=== PATIENT | female | born 1990 | race American Indian/Alaskan Native ===

== ENCOUNTER 2016-10-28 18:48 | Emergency (ER) | payer MEDICAID ==
--- NOTE | 2016-10-28 19:21 | Emergency Department Report ---
Chief Complaint: Urogenital-Female Stated Complaint: PREG/STOMACH PAIN/CRAMPING/VAG DISCH Time Seen by Provider: 10/28/16 19:21 - HPI History of Present Illness: . SHe reports that she is estimated at 7 weeks confirmed by home tests. She is complaining of lower abdominal cramping and vaginal discharge that as ordered times one week. She reports urinary frequency and some burning. Denies any fever or chills.She also said that she had minimal vaginal spotting today. She is no longer having any spotting. She reports that her pain is crampy in its 9 out of 10. Last menstrual period was 2015. - ROS Review of Systems: All systems are negative unless stated in HPI above. - Exam Vital Signs: Vital Signs 10/28/16 18:53 Temperature 98.4 F Pulse Rate 98 H Respiratory 18 Rate Blood Pressure 144/83 O2 Sat by Pulse 99 Oximetry Physical Exam: General:26-year-old female well-nourished well-developed in no acute distress. CV: S1, S2. Regular rate and rhythm. Abdomen: Tender to palpate in mid pelvic area. Normal bowel sounds in all quadrants. No CVA tenderness bilaterally. MSE screening note: Focused history and physical exam performed. Due to findings the following was ordered:see mdm ED Medical Decision Making - Medical Decision Making Medical decision making: Patient seen by provider in triage area. Appropriate protocol activated and patient to main ED to be seen by physician. ED Disposition for MSE Condition: Stable
[2016-10-28 19:57] LABS: Basophils % (Auto) 0.5 % (0.0-1.8); Hematocrit 37.2 % (30.3-42.9); Hemoglobin 12.3 gm/dl (10.1-14.3); Mean Corpuscular HGB Conc 33 % (30-34); Mean Corpuscular Volume 76 fl (79-97); Platelet Count 327 K/mm3 (140-440); Red Cell Distribution Width 13.3 % (13.2-15.2)
[2016-10-28 19:58] LABS: Mean Corpuscular Hemoglobin 25 pg (28-32)
[2016-10-28 20:10] LABS: Bilirubin,Urine NEG (Negative); Blood,Urine SM (Negative); Ketones,Urine NEG (Negative); Leukocyte Esterase,Urine MOD (Negative); Mucus,Urine FEW /HPF; Nitrite,Urine NEG (Negative); Protein,Urine <15 mg/dL mg/dL (Negative)
[2016-10-28 20:20] LABS: Alanine Aminotransferase 18 units/L (7-56); Albumin 4.2 g/dL (3.9-5); Albumin/Globulin Ratio 1.2 %; Alkaline Phosphatase 42 units/L (35-129); Amylase 61 units/L (27-131); Anion Gap 18 mmol/L; BUN/Creatinine Ratio 16.66; Bilirubin,Total 0.3 mg/dL (0.1-1.2); Blood Urea Nitrogen 10 mg/dL (7-17); Calcium 9.2 mg/dL (8.4-10.2); Carbon Dioxide 24 mmol/L (22-30); Chloride 100.3 mmol/L (98-107); Glucose 101 mg/dL (65-100); Lipase 42 units/L (13-60); Potassium 3.6 mmol/L (3.6-5.0); Sodium 139 mmol/L (137-145); Total Protein 7.7 g/dL (6.3-8.2)
--- NOTE | 2016-10-28 22:47 | Ultrasound Report ---
FINAL REPORT PROCEDURE: US OB TRANSVAGINAL TECHNIQUE: Real-time transabdominal and transvaginal sonography of the uterus, placenta, amniotic fluid, adnexa, and fetus was performed with image documentation. Measurements were obtained to determine age/size. M-mode Doppler was used to document heartbeat. CPT 96742 and 01877 HISTORY: abdominal pain and COMPARISON: No prior studies are available for comparison. FINDINGS: ADDITIONAL GESTATION: None. Single live intrauterine is seen with crown-rump length of 3.2 cm corresponding to 6 weeks 0 days gestational age. Mean sac diameter corresponds to estimated gestational age is 6 weeks 2 days gestational age. Estimated date of delivery based on these measurements is June 22, 2017. heart rate is 116 beats per minute. Tiny subchorionic hemorrhage is seen measuring 8 millimeters in greatest dimension. Right ovary measures 2.4 x 1.7 x 1.3 cm. Left ovary measures 3.2 x 3.0 x 3.0 cm and has a 2.6 cm cyst. No adnexal masses are seen. No free pelvic fluid is seen. IMPRESSION: 1. Single live intrauterine gestation at approximately 6 weeks 1 day. 2. EDC by US June 22, 2017 3. Tiny subchorionic hemorrhage is seen.
--- NOTE | 2016-10-28 22:49 | Ultrasound Report ---
FINAL REPORT PROCEDURE: US OB < = 14 WEEKS FETUS TECHNIQUE: Real-time transabdominal and transvaginal sonography of the uterus, placenta, amniotic fluid, adnexa, and fetus was performed with image documentation. Measurements were obtained to determine age/size. M-mode Doppler was used to document heartbeat. CPT 09028 and 07016 HISTORY: abdominal pain and COMPARISON: No prior studies are available for comparison. FINDINGS: ADDITIONAL GESTATION: None. Single live intrauterine is seen with crown-rump length of 3.2 cm corresponding to 6 weeks 0 days gestational age. Mean sac diameter corresponds to estimated gestational age is 6 weeks 2 days gestational age. Estimated date of delivery based on these measurements is June 22, 2017. heart rate is 116 beats per minute. Tiny subchorionic hemorrhage is seen measuring 8 millimeters in greatest dimension. Right ovary measures 2.4 x 1.7 x 1.3 cm. Left ovary measures 3.2 x 3.0 x 3.0 cm and has a 2.6 cm cyst. No adnexal masses are seen. No free pelvic fluid is seen. IMPRESSION: 1. Single live intrauterine gestation at approximately 6 weeks 1 day. 2. EDC by US June 22, 2017 3. Tiny subchorionic hemorrhage is seen.
--- NOTE | 2016-10-29 02:33 | Emergency Department Report ---
ED Female HPI - General Chief complaint: Urogenital-Female Stated complaint: PREG/STOMACH PAIN/CRAMPING/VAG DISCH Time Seen by Provider: 10/28/16 19:28 Source: patient, RN notes reviewed Mode of arrival: Ambulatory Limitations: No Limitations - History of Present Illness Initial comments: This is a 26-year-old female, previously unknown to me. She is 7, para 4. Follows with [facility]. Last menstrual period September 09. Denies history of abdominal surgeries. States no recent care. Presents to the ER complaining of abdominal cramping, vaginal spotting, vaginal discharge. Symptoms have been on and off for the past few days. There is no right lower quadrant pain. No vomiting, fevers or chills. She cannot describe exacerbating or relieving factors. While in the emergency room, prior to my evaluation, she had laboratory studies, type and screen, an ultrasound performed. Ultrasound demonstrated a single live intrauterine gestation at 6 weeks and 1 day, with a tiny subchorionic hemorrhage. Her laboratory studies were unremarkable, her urinalysis was unremarkable, and type and screen demonstrated that she was O+. Patient was counseled to initiate care, and she will be discharged with vitamins, as needed nausea medication. MD Complaint: pelvic pain -: Gradual Location: suprapubic Severity: mild Quality: cramping Consistency: intermittent Improves with: none Worsens with: none Are you Now?: Yes Associated Symptoms: vaginal discharge, vaginal bleeding. denies: nausea/ vomiting, fever/chills, headaches, loss of appetite, dysuria, hematuria, rash, seizure, shortness of breath, syncope, weakness - Related Data Sexually active: Yes Home Medications Medication Instructions Recorded Confirmed Last Taken ALBUTEROL NEB's [Proventil 0.083% 2 inhalation INNOSTRIL PRN PRN 09/05/1409/04/14 09:00 NEBS] Budesonide [Pulmicort Flexhaler] 1 puff INHALATION PRN 09/05/14 09/05/14 09:00 1 puff Pnv with Ca,No.71/Iron/FA 1 tab PO DAILY 09/05/14 09/05/14 09/05/14 09:00 [ Vitamin Tablet] 1 tablet Previous Rx's Medication Instructions Recorded Last Taken Type HYDROcodone/APAP 5-325 [[place] 1 each PO Q6HR PRN #20 tablet 09/06/14 Unknown Rx 5/325] Ibuprofen [Motrin] 800 mg PO TID PRN #60 tablet 09/06/14 Unknown Rx Doxylamine/Pyridoxine HCl 1 each PO QHS PRN #30 tablet. 10/29/16 Unknown Rx [Twila Greene 10-10 mg Tablet] Vit W-Ca,Fe,FA(<1 mg) 1 each PO QDAY #30 tablet 10/29/16 Unknown Rx [ Vitamins] Allergies Allergy/AdvReac Type Severity Reaction Status Date / Time No Known Allergies Allergy Verified 09/05/14 13:34 ED Review of Systems ROS: Stated complaint: PREG/STOMACH PAIN/CRAMPING/VAG DISCH Other details as noted in HPI Constitutional: denies: fever Eyes: denies: vision change ENT: denies: epistaxis Respiratory: denies: cough Cardiovascular: denies: chest pain Gastrointestinal: as per HPI Genitourinary: discharge, abnormal menses Musculoskeletal: as per HPI Skin: as per HPI Neurological: as per HPI Psychiatric: as per HPI ED Past Medical Hx - Past Medical History Hx Hypertension: No Hx Congestive Heart Failure: No Hx Diabetes: No Hx Deep Vein Thrombosis: No Hx Renal Disease: No Hx Sickle Cell Disease: No Hx Seizures: No Hx Asthma: Yes Hx COPD: No - Surgical History Past Surgical History?: No - Social History Smoking Status: Never Smoker Substance Use Type: Alcohol - Medications Home Medications: Home Medications Medication Instructions Recorded Confirmed Last Taken Type ALBUTEROL NEB's [Proventil 0.083% 2 inhalation INNOSTRIL PRN PRN 09/05/1409/04/14 09:00 History NEBS] Budesonide [Pulmicort Flexhaler] 1 puff INHALATION PRN 09/05/14 09/05/14 09:00 History 1 puff Pnv with Ca,No.71/Iron/FA 1 tab PO DAILY 09/05/14 09/05/14 09/05/14 09:00 History [ Vitamin Tablet] 1 tablet HYDROcodone/APAP 5-325 [[place] 1 each PO Q6HR PRN #20 tablet 09/06/14 Unknown Rx 5/325] Ibuprofen [Motrin] 800 mg PO TID PRN #60 tablet 09/06/14 Unknown Rx Doxylamine/Pyridoxine HCl 1 each PO QHS PRN #30 tablet. 10/29/16 Unknown Rx [Twila Greene 10-10 mg Tablet] Vit W-Ca,Fe,FA(<1 mg) 1 each PO QDAY #30 tablet 10/29/16 Unknown Rx [ Vitamins] ED Physical Exam - General Limitations: No Limitations General appearance: alert, in no apparent distress - Head Head exam: Present: atraumatic, normocephalic - Eye Eye exam: Present: normal appearance, EOMI. Absent: nystagmus - ENT ENT exam: Present: normal exam, normal orophraynx, mucous membranes moist - Neck Neck exam: Present: normal inspection, full ROM. Absent: tenderness - Respiratory Respiratory exam: Present: normal lung sounds bilaterally. Absent: respiratory distress, wheezes, rales, rhonchi, stridor, decreased breath sounds - Cardiovascular Cardiovascular Exam: Present: regular rate, normal rhythm, normal heart sounds. Absent: bradycardia, tachycardia, irregular rhythm, systolic murmur, diastolic murmur, rubs, gallop - GI/Abdominal GI/Abdominal exam: Present: soft, normal bowel sounds. Absent: distended, tenderness, guarding, rebound, rigid, pulsatile mass - External exam: Present: normal external exam Speculum exam: Present: normal speculum exam. Absent: vaginal bleeding Bi-manual exam: Present: normal bi-manual exam, other (during the gynecologic exam, I am escorted by ER pilot plant technician Kimmie Weir). Absent: cervical motion tendernes, adnexal tenderness, adnexal mass - Extremities Exam Extremities exam: Present: normal inspection, full ROM, normal capillary refill. Absent: tenderness, pedal edema, joint swelling, calf tenderness - Back Exam Back exam: Present: normal inspection, full ROM. Absent: tenderness, CVA tenderness (R), CVA tenderness (L), muscle spasm, paraspinal tenderness, vertebral tenderness - Neurological Exam Neurological exam: Present: alert, oriented X3, normal gait, other (Extraocular movements intact. Tongue midline. No facial droop. Facial sensation intact to light touch in the V1, V2, V3 distribution bilaterally. 5 and 5 strength in 4 extremities.. Sensation is intact to light touch in 4 extremities.). Absent : motor sensory deficit - Psychiatric Psychiatric exam: Present: normal affect, normal mood - Skin Skin exam: Present: warm, dry, intact, normal color. Absent: rash ED Course Vital Signs 10/28/16 10/29/16 10/29/16 18:53 00:16 01:22 Temperature 98.4 F 98.2 F Pulse Rate 98 H 88 Respiratory 18 20 18 Rate Blood Pressure 144/83 Blood Pressure 107/72 [Left] O2 Sat by Pulse 99 99 Oximetry 10/29/16 10/29/16 02:18 03:12 Temperature Pulse Rate 88 86 Respiratory 16 16 Rate Blood Pressure Blood Pressure 124/78 128/80 [Left] O2 Sat by Pulse 99 99 Oximetry ED Medical Decision Making - Lab Data Result diagrams: 10/28/16 19:41 10/28/16 19:41 Vital Signs 10/28/16 10/29/16 10/29/16 18:53 00:16 01:22 Temperature 98.4 F 98.2 F Pulse Rate 98 H 88 Respiratory 18 20 18 Rate Blood Pressure 144/83 Blood Pressure 107/72 [Left] O2 Sat by Pulse 99 99 Oximetry 10/29/16 02:18 Temperature Pulse Rate 88 Respiratory 16 Rate Blood Pressure Blood Pressure 124/78 [Left] O2 Sat by Pulse 99 Oximetry Lab Results 10/28/16 10/28/16 10/28/16 Range/Units 19:40 19:41 19:41 WBC 10.0 (4.5-11.0) K/mm3 RBC 4.90 (3.65-5.03) M/mm3 Hgb 12.3 (10.1-14.3) gm/dl Hct 37.2 (30.3-42.9) % MCV 76 L (79-97) fl MCH 25 L (28-32) pg MCHC 33 (30-34) % RDW 13.3 (13.2-15.2) % Plt Count 327 (140-440) K/mm3 Lymph % (Auto) 33.2 (13.4-35.0) % [place] % (Auto) 6.9 (0.0-7.3) % Eos % (Auto) 1.0 (0.0-4.3) % Baso % (Auto) 0.5 (0.0-1.8) % Lymph # 3.3 (1.2-5.4) K/mm3 [place] # 0.7 (0.0-0.8) K/mm3 Eos # 0.1 (0.0-0.4) K/mm3 Baso # 0.1 (0.0-0.1) K/mm3 Seg Neutrophils % 58.4 (40.0-70.0) % Seg Neutrophils # 5.8 (1.8-7.7) K/mm3 Sodium 139 (137-145) mmol/L Potassium 3.6 (3.6-5.0) mmol/L Chloride 100.3 (98-107) mmol/L Carbon Dioxide 24 (22-30) mmol/L Anion Gap 18 mmol/L BUN 10 (7-17) mg/dL Creatinine 0.6 L (0.7-1.2) mg/dL Estimated GFR > 60 ml/min BUN/Creatinine Ratio 16.66 % Glucose 101 H (65-100) mg/dL Calcium 9.2 (8.4-10.2) mg/dL Total Bilirubin 0.3 (0.1-1.2) mg/dL AST 19 (5-40) units/L ALT 18 (7-56) units/L Alkaline Phosphatase 42 (35-129) units/L Total Protein 7.7 (6.3-8.2) g/dL Albumin 4.2 (3.9-5) g/dL Albumin/Globulin Ratio 1.2 % Amylase 61 (27-131) units/L Lipase 42 (13-60) units/L HCG, Quant (0-4) mIU/mL Urine Color (Yellow) Urine Turbidity (Clear) Urine pH (5.0-7.0) Ur Specific [place] (1.003-1.030) Urine Protein (Negative) mg/dL Urine Glucose (UA) (Negative) mg/dL Urine Ketones (Negative) mg/dL Urine Blood (Negative) Urine Nitrite (Negative) Urine Bilirubin (Negative) Urine Urobilinogen (<2.0) mg/dL Ur Leukocyte Esterase (Negative) Urine WBC (Auto) (0.0-6.0) /HPF Urine RBC (Auto) (0.0-6.0) /HPF U Epithel Cells (Auto) (0-13.0) /HPF Urine Mucus /HPF Blood Type O POSITIVE Antibody Screen Negative 01/05/17 01/05/17 Range/Units 19:41 19:54 WBC (4.5-11.0) K/mm3 RBC (3.65-5.03) M/mm3 Hgb (10.1-14.3) gm/dl Hct (30.3-42.9) % MCV (79-97) fl MCH (28-32) pg MCHC (30-34) % RDW (13.2-15.2) % Plt Count (140-440) K/mm3 Lymph % (Auto) (13.4-35.0) % [place] % (Auto) (0.0-7.3) % Eos % (Auto) (0.0-4.3) % Baso % (Auto) (0.0-1.8) % Lymph # (1.2-5.4) K/mm3 [place] # (0.0-0.8) K/mm3 Eos # (0.0-0.4) K/mm3 Baso # (0.0-0.1) K/mm3 Seg Neutrophils % (40.0-70.0) % Seg Neutrophils # (1.8-7.7) K/mm3 Sodium (137-145) mmol/L Potassium (3.6-5.0) mmol/L Chloride (98-107) mmol/L Carbon Dioxide (22-30) mmol/L Anion Gap mmol/L BUN (7-17) mg/dL Creatinine (0.7-1.2) mg/dL Estimated GFR ml/min BUN/Creatinine Ratio % Glucose (65-100) mg/dL Calcium (8.4-10.2) mg/dL Total Bilirubin (0.1-1.2) mg/dL AST (5-40) units/L ALT (7-56) units/L Alkaline Phosphatase (35-129) units/L Total Protein (6.3-8.2) g/dL Albumin (3.9-5) g/dL Albumin/Globulin Ratio % Amylase (27-131) units/L Lipase (13-60) units/L HCG, Quant 8204 H (0-4) mIU/mL Urine Color Yellow (Yellow) Urine Turbidity Clear (Clear) Urine pH 6.0 (5.0-7.0) Ur Specific [place] 1.015 (1.003-1.030) Urine Protein <15 mg/dl (Negative) mg/dL Urine Glucose (UA) Neg (Negative) mg/dL Urine Ketones Neg (Negative) mg/dL Urine Blood Sm (Negative) Urine Nitrite Neg (Negative) Urine Bilirubin Neg (Negative) Urine Urobilinogen 2.0 (<2.0) mg/dL Ur Leukocyte Esterase Mod (Negative) Urine WBC (Auto) 4.0 (0.0-6.0) /HPF Urine RBC (Auto) 3.0 (0.0-6.0) /HPF U Epithel Cells (Auto) 2.0 (0-13.0) /HPF Urine Mucus Few /HPF Blood Type Antibody Screen - Radiology Data Radiology results: report reviewed, image reviewed [employer] ultrasound demonstrates a single live intrauterine gestation at 6 weeks 1 day. A tiny subchorionic hemorrhages noted Critical care attestation.: If time is entered above; I have spent that time in minutes in the direct care of this critically ill patient, excluding procedure time. ED Disposition Clinical Impression: Disposition: DISCHARGED TO HOME OR SELFCARE Is pt being admited?: No Does the pt Need Aspirin: No Condition: Stable Instructions: (ED), Threatened Miscarriage (ED) Additional Instructions: Ultrasound demonstrated intrauterine , with small bleed. This is consistent with a possible miscarriage. Rest and avoid heavy lifting. Avoid strenuous physical activity, avoid sexual activity. Cultures were sent today, results will be available in the next 3-5 days. Have a primary care doctor or [employer] doctor contact the medical records department to obtain culture results. Follow up with an [employer] doctor within the next week. Return to the ER right away with new pain, worsened pain, migration of pain, fevers or chills, nausea or vomiting, inability to tolerate liquid feeds. Prescriptions: Doxylamine/Pyridoxine HCl [Twila Greene 10-10 mg Tablet] 1 each PO QHS PRN #30 tablet. PRN Reason: Nausea Vit W-Ca,Fe,FA(<1 mg) [ Vitamins] 1 each PO QDAY #30 tablet Referrals: PRIMARY MD MERRY [Primary Care Provider] - 3-5 Days VANESSA MITCHELL MD [Staff Physician] - 3-5 Days [facility] [employer] [facility] [Provider Group] - 3-5 Days
[2016-10-29 03:13] VITALS: BP 128/80
== END 2016-10-29 03:13 | disposition home or self-care (01) ==
LOC: ED 18:48
DX: O26.851 Spotting complicating pregnancy, first trimester (principal); O26.891 Other specified pregnancy related conditions, first trimester; N89.8 Other specified noninflammatory disorders of vagina; J45.909 Unspecified asthma, uncomplicated; Z3A.01 Less than 8 weeks gestation of pregnancy
CPT/HCPCS: 36415; 76801; 76817; 80053; 81001; 82150; 83690; 84702; 85025; 86850; 86900; 86901; 87210; 87591

== ENCOUNTER 2018-03-06 11:16 | Emergency (ER) | payer MEDICAID ==
[2018-03-06 12:56] LABS: BUN/Creatinine Ratio 13; Blood Urea Nitrogen 4 mg/dL (7-17); Calcium 8.6 mg/dL (8.4-10.2); Hemolysis Index 7
[2018-03-06 12:58] LABS: Hematocrit 34.5 % (30.3-42.9); Hemoglobin 11.7 gm/dl (10.1-14.3); Mean Corpuscular HGB Conc 34 % (30-34); Mean Corpuscular Volume 75 fl (79-97); Platelet Count 232 K/mm3 (140-440); Red Blood Count 4.58 M/mm3 (3.65-5.03); Red Cell Distribution Width 16.6 % (13.2-15.2)
[2018-03-06 13:04] LABS: Mean Corpuscular Hemoglobin 26 pg (28-32)
[2018-03-06 14:17] LABS: Band Neutrophils # (Manual) 0.1 K/mm3; Basophils % (Manual) 0 % (0.0-1.8); Large Platelets 1+; RBC Morphology Normal; Total Cells Counted 100
--- NOTE | 2018-03-06 19:10 | Cat Scan Report ---
FINAL REPORT PROCEDURE: CT angiogram chest with contrast. TECHNIQUE: Computerized tomographic angiography of the chest was performed after the IV injection of iodinated nonionic contrast including image processing. The image data was postprocessed using 2-dimensional multiplanar reformatted (MPR) and 3-dimensional (MIP and/or volume rendered) techniques. HISTORY: Dyspnea, sharp chest pain. COMPARISON: No prior studies are available for comparison. FINDINGS: The trachea and central bronchi appear normal. The lungs are clear and well expanded. There are no pleural effusions. The thoracic aorta has a normal caliber without evidence of dissection. The pulmonary arteries enhance normally. There are no filling defects to indicate pulmonary embolism. There is no mediastinal adenopathy. The heart size is normal. The thoracic skeleton appears intact. IMPRESSION: Normal study.
--- NOTE | 2018-03-06 19:19 | Emergency Department Report ---
ED Chest Pain HPI - General Chief Complaint: Chest Pain Stated Complaint: CHEST PAIN/SOB Time Seen by Provider: 03/06/18 16:15 Source: patient Mode of arrival: Ambulatory Limitations: No Limitations - History of Present Illness Initial Comments: She is a 27-year-old Evie female who presents with chest pain. Patient states she started having some sharp chest pain with accompanied shortness of breath or take her breath and ability to speak away from starting yesterday. Patient states these episodes occur for about 10 minutes and then fade. Patient denies any cough congestion exertional chest pain. Patient also denies any nausea vomiting or diarrhea. Patient is 38 weeks at this time. Severity scale (0 -10): 8 - Related Data Home Medications Medication Instructions Recorded Confirmed Last Taken ALBUTEROL NEB's [Proventil 0.083% 2 inhalation INNOSTRIL PRN PRN 09/05/1409/04/14 09:00 NEBS] Budesonide [Pulmicort Flexhaler] 1 puff INHALATION PRN 09/05/14 09/05/14 09:00 1 puff Pnv with Ca,No.71/Iron/FA 1 tab PO DAILY 09/05/14 09/05/14 09/05/14 09:00 [ Vitamin Tablet] 1 tablet Previous Rx's Medication Instructions Recorded Last Taken Type HYDROcodone/APAP 5-325 [[place] 1 each PO Q6HR PRN #20 tablet 09/06/14 Unknown Rx 5/325] Ibuprofen [Motrin] 800 mg PO TID PRN #60 tablet 09/06/14 Unknown Rx Doxylamine Succinate/Vit B6 1 each PO QHS PRN #30 tablet. 10/29/16 Unknown Rx [Twila Greene 10-10 mg Tablet] Vit Calc,Iron,Folic 1 each PO QDAY #30 tablet 10/29/16 Unknown Rx [ Vitamins] Famotidine [Pepcid] 20 mg PO BID #14 tablet 03/06/18 Unknown Rx Allergies Allergy/AdvReac Type Severity Reaction Status Date / Time No Known Allergies Allergy Verified 09/05/14 13:34 Heart Score - HEART Score History: Slightly suspicious EKG: Normal Age: < 45 Risk factors: No known risk factors Troponin: < normal limit HEART Score: 0 ED Review of Systems ROS: Stated complaint: CHEST PAIN/SOB Other details as noted in HPI Comment: All other systems reviewed and negative ED Past Medical Hx - Past Medical History Hx Hypertension: No Hx Congestive Heart Failure: No Hx Diabetes: No Hx Deep Vein Thrombosis: No Hx Renal Disease: No Hx Sickle Cell Disease: No Hx Seizures: No Hx Asthma: Yes Hx COPD: No Additional medical history: THYROID - Surgical History Past Surgical History?: No - Social History Smoking Status: Never Smoker Substance Use Type: None - Medications Home Medications: Home Medications Medication Instructions Recorded Confirmed Last Taken Type ALBUTEROL NEB's [Proventil 0.083% 2 inhalation INNOSTRIL PRN PRN 09/05/1409/04/14 09:00 History NEBS] Budesonide [Pulmicort Flexhaler] 1 puff INHALATION PRN 09/05/14 09/05/14 09:00 History 1 puff Pnv with Ca,No.71/Iron/FA 1 tab PO DAILY 09/05/14 09/05/14 09/05/14 09:00 History [ Vitamin Tablet] 1 tablet HYDROcodone/APAP 5-325 [[place] 1 each PO Q6HR PRN #20 tablet 09/06/14 Unknown Rx 5/325] Ibuprofen [Motrin] 800 mg PO TID PRN #60 tablet 09/06/14 Unknown Rx Doxylamine Succinate/Vit B6 1 each PO QHS PRN #30 tablet. 10/29/16 Unknown Rx [Twila Gerene 10-10 mg Tablet] Vit Calc,Iron,Folic 1 each PO QDAY #30 tablet 10/29/16 Unknown Rx [ Vitamins] Famotidine [Pepcid] 20 mg PO BID #14 tablet 03/06/18 Unknown Rx ED Physical Exam - General Limitations: No Limitations General appearance: alert, in no apparent distress - Head Head exam: Present: atraumatic, normocephalic - Eye Eye exam: Present: normal appearance - ENT ENT exam: Present: mucous membranes moist - Neck Neck exam: Present: normal inspection - Respiratory Respiratory exam: Present: normal lung sounds bilaterally. Absent: respiratory distress, wheezes, rales, rhonchi - Cardiovascular Cardiovascular Exam: Present: regular rate, normal rhythm. Absent: systolic murmur, diastolic murmur, rubs, gallop - GI/Abdominal GI/Abdominal exam: Present: soft, distended (gravid uterus), normal bowel sounds. Absent: tenderness, guarding, rebound - Extremities Exam Extremities exam: Present: normal inspection - Back Exam Back exam: Present: normal inspection - Neurological Exam Neurological exam: Present: alert, oriented X3 - Psychiatric Psychiatric exam: Present: normal affect, normal mood - Skin Skin exam: Present: warm, dry, intact, normal color. Absent: rash ED Course Vital Signs 03/06/18 03/06/18 03/06/18 11:33 15:18 16:30 Temperature 98.3 F 98.6 F Pulse Rate 110 H 86 79 Respiratory 18 18 16 Rate Blood Pressure 128/82 127/74 Blood Pressure 149/67 [Right] O2 Sat by Pulse 98 96 99 Oximetry 03/06/18 03/06/18 03/06/18 16:37 16:46 17:16 Temperature Pulse Rate 87 85 Respiratory 16 18 26 H Rate Blood Pressure 127/74 123/55 Blood Pressure [Right] O2 Sat by Pulse 100 98 99 Oximetry ED Medical Decision Making - Lab Data Result diagrams: 03/06/18 12:18 03/06/18 12:18 Lab Results 03/06/18 03/06/18 03/06/18 Range/Units 12:18 12:18 14:38 WBC 9.6 (4.5-11.0) K/mm3 RBC 4.58 (3.65-5.03) M/mm3 Hgb 11.7 (10.1-14.3) gm/dl Hct 34.5 (30.3-42.9) % MCV 75 L (79-97) fl MCH 26 L (28-32) pg MCHC 34 (30-34) % RDW 16.6 H (13.2-15.2) % Plt Count 232 (140-440) K/mm3 Add Manual Diff Complete Total Counted 100 Seg Neuts % (Manual) 79.0 H (40.0-70.0) % Band Neutrophils % 1.0 % Lymphocytes % (Manual) 16.0 (13.4-35.0) % Reactive Lymphs % (Man) 0 % Monocytes % (Manual) 1.0 (0.0-7.3) % Eosinophils % (Manual) 1.0 (0.0-4.3) % Basophils % (Manual) 0 (0.0-1.8) % Metamyelocytes % 2.0 % Myelocytes % 0 % Promyelocytes % 0 % Blast Cells % 0 % Nucleated RBC % Not Reportable Seg Neutrophils # Man 7.6 (1.8-7.7) K/mm3 Band Neutrophils # 0.1 K/mm3 Lymphocytes # (Manual) 1.5 (1.2-5.4) K/mm3 Abs React Lymphs (Man) 0.0 K/mm3 Monocytes # (Manual) 0.1 (0.0-0.8) K/mm3 Eosinophils # (Manual) 0.1 (0.0-0.4) K/mm3 Basophils # (Manual) 0.0 (0.0-0.1) K/mm3 Metamyelocytes # 0.2 K/mm3 Myelocytes # 0.0 K/mm3 Promyelocytes # 0.0 K/mm3 Blast Cells # 0.0 K/mm3 WBC Morphology Not Reportable Hypersegmented Neuts Not Reportable Hyposegmented Neuts Not Reportable Hypogranular Neuts Not Reportable Smudge Cells Not Reportable Toxic Granulation Not Reportable Toxic Vacuolation Not Reportable Dohle Bodies Not Reportable Pelger-Huet Anomaly Not Reportable Chetan Rods Not Reportable Platelet Estimate Appears normal Clumped Platelets Not Reportable Plt Clumps, EDTA Not Reportable Large Platelets 1+ Giant Platelets Not Reportable Platelet Satelliting Not Reportable Plt Morphology Comment Not Reportable RBC Morphology Normal Dimorphic RBCs Not Reportable Polychromasia Not Reportable Hypochromasia Not Reportable Poikilocytosis Not Reportable Anisocytosis Not Reportable Microcytosis Not Reportable Macrocytosis Not Reportable Spherocytes Not Reportable Pappenheimer Bodies Not Reportable Sickle Cells Not Reportable Target Cells Not Reportable Tear Drop Cells Not Reportable Ovalocytes Not Reportable Helmet Cells Not Reportable [place] Bodies Not Reportable [place] Rings Not Reportable Alee Cells Not Reportable Bite Cells Not Reportable Crenated Cell Not Reportable Elliptocytes Not Reportable Acanthocytes (Spur) Not Reportable Rouleaux Not Reportable Hemoglobin C Crystals Not Reportable Schistocytes Not Reportable Malaria parasites Not Reportable Jose Bodies Not Reportable Hem Pathologist Commnt No Sodium 138 (137-145) mmol/L Potassium 3.6 (3.6-5.0) mmol/L Chloride 103.2 (98-107) mmol/L Carbon Dioxide 22 (22-30) mmol/L Anion Gap 16 mmol/L BUN 4 L (7-17) mg/dL Creatinine 0.3 L (0.7-1.2) mg/dL Estimated GFR > 60 ml/min BUN/Creatinine Ratio 13 % Glucose 121 H (65-100) mg/dL Calcium 8.6 (8.4-10.2) mg/dL Troponin T < 0.010 < 0.010 (0.00-0.029) ng/mL - EKG Data Interpretation: other (EKG shows sinus rhythm rate of 96 small axis normal intervals no ST segment elevation or depressions, interpretation is 11:30) - Radiology Data Etiology of the chest was negative for pulmonary embolism pneumonia. - Medical Decision Making Because the patient was and having shortness of breath chest pain CT angiogram was ordered to rule out pulmonary and was negative. Patient most likely is having a typical GERD symptoms secondary to her advanced state. Patient was started on Pepcid and discharged home. Critical care attestation.: If time is entered above; I have spent that time in minutes in the direct care of this critically ill patient, excluding procedure time. ED Disposition Clinical Impression: Atypical chest pain, GERD (gastroesophageal reflux disease) Disposition: DC-01 TO HOME OR SELFCARE Is pt being admited?: No Does the pt Need Aspirin: No Condition: Stable Instructions: Chest Pain (ED) Prescriptions: Famotidine [Pepcid] 20 mg PO BID #14 tablet Referrals: PRIMARY CARE, [Primary Care Provider] - 3-5 Days
[2018-03-06 19:32] VITALS: BP 126/76
== END 2018-03-06 19:32 | disposition home or self-care (01) ==
LOC: ED 11:16
DX: R07.89 Other chest pain (principal); K21.9 Gastro-esophageal reflux disease without esophagitis; J45.909 Unspecified asthma, uncomplicated
CPT/HCPCS: 36415; 71275; 80048; 84484; 85007; 85025; 93005; 93010; 99284; Q9967

== ENCOUNTER 2018-03-17 07:41 | Inpatient (IN) | payer MEDICAID ==
[2018-03-17] MEDS ORDERED: XYLOCAINE 2% INFILTRATI NR (08:30)
[2018-03-17] MEDS ORDERED: MINERAL OIL PO PRN (08:30)
[2018-03-17] MEDS ORDERED: ePHEDrine SULFATE IV PRN (08:30)
[2018-03-17] MEDS ORDERED: STADOL IV PRN (08:30)
[2018-03-17] MEDS ORDERED: ZOFRAN IV PRN (08:30)
[2018-03-17] MEDS ORDERED: CYTOTEC VG NR (08:30)
[2018-03-17] MEDS ORDERED: NARCAN 0.4 MG/1 ML IV PRN (08:30)
[2018-03-17] MEDS ORDERED: NUBAIN IV PRN (09:00)
[2018-03-17] MEDS ORDERED: BRETHINE SUB-Q PRN (09:00)
[2018-03-17] MEDS ORDERED: BRETHINE IVP PRN (09:00)
[2018-03-17] MEDS ORDERED: PITOCin/NS 30 UNIT/500ML 30 UNITS/500 ML BAG IV SCH (09:00)
[2018-03-17] MEDS ORDERED: PITOCin/NS 20 UNIT/1000ML DRIP 20 UNITS/1,000 ML BAG IV SCH (09:00)
[2018-03-17 09:24] LABS: Hematocrit 34.6 % (30.3-42.9); Hemoglobin 11.3 gm/dl (10.1-14.3); Mean Corpuscular HGB Conc 33 % (30-34); Mean Corpuscular Volume 75 fl (79-97); Platelet Count 227 K/mm3 (140-440); Red Cell Distribution Width 16.8 % (13.2-15.2)
[2018-03-17] MEDS: LACTATED RINGERS 1,000 ML IV SCH ×2 (09:25→16:33)
[2018-03-17 09:44] LABS: Mean Corpuscular Hemoglobin 25 pg (28-32)
--- NOTE | 2018-03-17 13:56 | History and Physical Report ---
History of Present Illness Date of examination: 03/17/18 Date of admission: 03/17/18 07:41 Chief complaint: induction of labor History of present illness: Pt is a 27 year old female DOMI 03/10/18 at 41w0d who presents for induction secondary to postdates. She denies vaginal bleeding or leakage of fluid. 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 She is GBS negative. 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 History: chlamydia (treated with negative test of cure ), herpes (no lesion or prodrome ) Family/Genetic History: diabetes, heart disease, hypertension Social history: no significant social history - Obstetrical History Expected Date of Delivery: 03/10/18 Actual Gestation: 41 Week(s) 0 Day(s) : 8 Para: 4 Hx # Term Pregnancies: 3 Number of Pregnancies: 1 Spontaneous Abortions: 0 Induced : 3 Number of Living Children: 4 Medications and Allergies Allergies Allergy/AdvReac Type Severity Reaction Status Date / Time No Known Allergies Allergy Verified 03/17/18 09:11 Home Medications Medication Instructions Recorded Confirmed Last Taken Type ALBUTEROL NEB's [Proventil 0.083% 2 inhalation INNOSTRIL PRN PRN 09/05/1409/04/14 09:00 History NEBS] Vit Calc,Iron,Folic 1 each PO QDAY #30 tablet 10/29/16 03/17/18 07:00 Rx [ Vitamins] 1 Ferrous Sulfate [Feosol 325 MG tab] 1 tab PO BID 03/17/18 03/17/18 03/16/18 21: 00 History Methimazole [Tapazole] 1 tab PO DAILY 03/17/18 03/17/18 03/10/18 09:00 History 1 Active Meds: Active Medications Butorphanol Tartrate (Stadol) 2 mg IV Q2H PRN PRN Reason: Pain , Severe (7-10) Ephedrine Sulfate (Ephedrine Sulfate) 10 mg IV Q2M PRN PRN Reason: Hypotension Fentanyl (Sublimaze) 100 mcg IV Q2H PRN PRN Reason: Labor Pain Lactated Ringer's (Lactated Ringers) 1,000 mls @ 125 mls/hr IV DIRECT LJ Last Admin: 03/17/18 09:25 Dose: 125 mls/hr Oxytocin/Sodium Chloride (Pitocin/Ns 20 Unit/1000ml Drip) 20 units in 1,000 mls @ 125 mls/hr IV DIRECT LJ Oxytocin/Sodium Chloride (Pitocin/Ns 30 Unit/500ml) 30 units in 500 mls @ 4 mls /hr IV TITR LJ; Protocol Lidocaine (Xylocaine 2%) 20 ml INFILTRATI ONCE NR Stop: 03/18/18 08:29 Mineral Oil (Mineral Oil) 30 ml PO QHS PRN PRN Reason: Constipation Nalbuphine HCl (Nubain) 10 mg IV Q2H PRN PRN Reason: Pain, Moderate (4-6) Naloxone HCl (Narcan 0.4 Mg/1 Ml) 0.1 mg IV Q2MIN PRN PRN Reason: Res Rate </= 8 or 02 SAT < 92% Ondansetron HCl (Zofran) 4 mg IV Q8H PRN PRN Reason: Nausea And Vomiting Terbutaline Sulfate (Brethine) 0.25 mg SUB-Q ONCE PRN PRN Reason: Hyperstimulation/Hypertonicity Terbutaline Sulfate (Brethine) 0.25 mg IVP ONCE PRN PRN Reason: Hyperstimulation/Hypertonicity Review of Systems All systems: negative - Vital Signs Vital signs: Vital Signs Pulse Resp BP Pulse Ox 116 H 16 126/81 97 03/17/18 08:14 03/17/18 08:14 03/17/18 08:14 03/17/18 08:14 Temp Pulse Resp BP Pulse Ox 87 16 122/76 97 03/17/18 09:54 03/17/18 08:14 03/17/18 09:54 03/17/18 08:14 - Physical Exam Breasts: Positive: deferred Cardiovascular: Regular rate Lungs: Positive: Clear to auscultation Abdomen: Positive: soft (obese, gravid) Genitourinary (Female): Positive: normal external genitalia Uterus: Positive: enlarged (gravid ) Extremities: Positive: edema (trace ) - Obstetrical FHR: auscultation normal Uterine Contraction Monitor Mode: External Cervical Dilatation: 0.5 Uterine Contraction Pattern: Absent Uterine Tone Measurement Phase: Resting Uterine Contraction Intensity: Mild Results Result Diagrams: 03/17/18 08:48 Abnormal lab results 03/17/18 Range/Units 08:48 MCV 75 L (79-97) fl MCH 25 L (28-32) pg RDW 16.8 H (13.2-15.2) % All other labs normal. Assessment and Plan A: IUP at 41w0d Unfavorable Cervix Hyperthyroidism Obesity Grandmultiparity GBS negative H/o H/o gestational hypertension Chlamydia treated with negative test of cure Alpha thalssemia trait P: Admit to labor and delivery Misoprostol 25 mcg vaginally for cervical ripening Routine intrapartum mangement
[2018-03-17] MEDS ORDERED: BENADRYL IV NR (17:44)
[2018-03-17] MEDS ORDERED: CERVIDIL VG NR (18:04)
--- NOTE | 2018-03-17 18:05 | Event Note ---
Date: 03/17/18 Pt not feeling contractions. Discontinue pitocin and begin cervidil. Routine intrapartum care.
[2018-03-17] MEDS ORDERED: AMBIEN PO PRN (20:58)
[2018-03-17] MEDS: SUBLIMAZE IV PRN (21:41)
[2018-03-17] MEDS ORDERED: PEPCID IV SCH (22:00)
[2018-03-18] MEDS: LACTATED RINGERS 1,000 ML IV SCH (00:14)
[2018-03-18] MEDS: SUBLIMAZE IV PRN ×2 (00:14→01:45)
--- NOTE | 2018-03-18 01:48 | Procedure Note ---
OB Delivery Note - Delivery Date of Delivery: 03/18/18 Surgeon: PRANEETH OLIVARES Estimated blood loss: 300cc - Vaginal Delivery presentation: vertex Delivery position: OA Intrapartum events: meconium, decreased FHT variability, mult.variable deceleratio Delivery induction: cervidil Delivery augmentation: pitocin Delivery monitor: external FHT, external uterine Route of delivery: Delivery placenta: spontaneous Delivery cord: nuchal cord Episiotomy: none Delivery laceration: other (vaginal abrasions-hemostatic without repair ) Anesthesia: none Delivery comments: On-call MD notified that patient was 6 cm. While on-call MD en route, pt experienced SROM and rapidly progressed to delivery of a viable male over intact perineum under no anesthesia via attended by RN. Cord clamped and cut and attended by NICU staff in attendance. Upon MD arrival, in warmer and placenta in situ. Placenta delivered spontaneously. Vagina and perineum explored. Vaginal and perineal abrasions noted to be hemostatic. EBL 300 mL. - A at 1 minute: 2 at 5 minutes: 9 Infant Gender: Male (3762g (8lb 5 oz) @ 0122 am)
[2018-03-18] MEDS ORDERED: MILK OF MAGNESIA PO PRN (03:15)
[2018-03-18] MEDS ORDERED: DERMOPLAST TP PRN (03:15)
[2018-03-18] MEDS ORDERED: PITOCin/NS 20 UNIT/1000ML DRIP 20 UNITS/1,000 ML BAG IV SCH (03:15)
[2018-03-18] MEDS ORDERED: DULCOLAX PR PRN (03:15)
[2018-03-18] MEDS ORDERED: SODIUM CHLORIDE FLUSH SYRINGE 10 ML IV PRN (03:15)
[2018-03-18] MEDS ORDERED: PHENERGAN PR PRN (03:15)
[2018-03-18] MEDS ORDERED: TUCKS PAD TP PRN (03:15)
[2018-03-18] MEDS ORDERED: PHENERGAN PO PRN (03:15)
[2018-03-18] MEDS ORDERED: LANSINOH TP PRN ×2 (03:15)
[2018-03-18] MEDS ORDERED: ZOFRAN IV PRN (03:15)
[2018-03-18] MEDS: MOTRIN PO SCH ×4 (04:11→23:30)
[2018-03-18] MEDS: FEOSOL PO SCH ×2 (10:05→23:30)
[2018-03-18] MEDS: PERCOCET 5/325 PO PRN ×2 (10:10→16:41)
[2018-03-18 15:10] LABS: Hemoglobin 11.2 gm/dl (10.1-14.3)
[2018-03-18] MEDS: BENADRYL PO PRN (23:30)
[2018-03-19] MEDS ORDERED: M-M-R II VACCINE SUB-Q ONE (01:48)
[2018-03-19] MEDS: MOTRIN PO SCH ×3 (05:40→21:22)
[2018-03-19] MEDS ORDERED: BOOSTRIX IM ONE (06:00)
[2018-03-19] MEDS: TAPAZOLE PO SCH (12:21)
[2018-03-19] MEDS: FEOSOL PO SCH ×2 (12:21→21:22)
--- NOTE | 2018-03-19 12:24 | Progress Note ---
Assessment and Plan A: PPD#1 s/p at term, Hyperthyroidism, Morbid Obesity P: Routine postapartum care. Anticipate discharge tomorrow. Subjective - Subjective Date of service: 03/19/18 Principal diagnosis: s/p at term, Hyperthyroidism Interval history: No overnight events. Pt would like to go home tomorrow. The baby must be observed for at least 72 hrs secondary to maternal history of hyperthyroidism on methimazole 5 mg daily. Patient reports: appetite normal, voiding normally, pain well controlled, ambulating normally : doing well, bottle feeding Objective - Vital Signs Latest vital signs: Vital Signs Temp Pulse Resp BP BP Pulse Ox 03/19/18 09:36 98.5 F 99 H 18 123/84 03/19/18 01:16 98.4 F 82 18 107/64 03/18/18 18:02 20 03/18/18 17:18 98.2 F 95 H 20 144/88 98 03/18/18 16:41 20 Intake and Output 03/18/18 03/19/18 03/19/18 22:59 06:59 14:59 Intake Total 360 Balance 360 Intake: Oral 360 Other: Total, Intake Amount 240 # Voids Void 1 - Exam Breasts: Present: deferred Cardiovascular: Present: Regular rate Lungs: Present: Clear to auscultation Abdomen: Present: soft (obese ) Uterus: Present: fundal height at umbilicus Extremities: Present: normal
--- NOTE | 2018-03-19 12:25 | Discharge Summary ---
Providers - Providers Date of Admission: 03/17/18 07:41 Date of discharge: 03/20/18 Attending physician: PRANEETH OLIVARES 03/18/18 03:15 Consult to Research Technologist [CONS] Routine Reason For Exam: assistance with , SNS Primary care physician: PRANEETH OLIVARES Hospitalization Reason for admission: induction of labor Delivery: Procedure details: Please see delivery note. Episiotomy: none Laceration: other (vaginal abrasions- hemostatic ) Other procedures: none complications: none Discharge diagnosis: IUP at term delivered baby: male Hospital course: Pt was admitted for induction of labor and went on to have an which she tolerated well. Her course was uncomplicated and she met discharge criteria on PPD#2. She will follow up in 4 weeks for exam. Condition at discharge: Stable Disposition: DC-01 TO HOME OR SELFCARE - Discharge Diagnoses (1) Term of male Status: Acute (2) Morbid obesity Status: Acute (3) Hyperthyroidism complicating Status: Acute Qualifiers: Trimester: third trimester Qualified Code(s): O99.283 - Endocrine, nutritional and metabolic diseases complicating , third trimester; E05.90 - Thyrotoxicosis, unspecified without thyrotoxic crisis or storm Plan - Discharge Medications Prescriptions: HYDROcodone/APAP 5-325 [[place] 5/325] 1 each PO Q6HR PRN #20 tablet PRN Reason: Pain Ibuprofen 800 mg PO Q8H PRN #30 tablet PRN Reason: Pain - Provider Discharge Summary Activity: routine, no sex for 6 weeks, no heavy lifting 4 weeks, no strenuous exercise Diet: routine Instructions: routine Additional instructions: [] Smoking cessation referral if applicable(refer to patient education folder for contact #) [] Refer to [facility] Booklet Call your doctor immediately for: * Fever > 100.5 * Heavy vaginal bleeding ( >1 pad per hour) * Severe persistent headache * Shortness of breath * Reddened, hot, painful area to leg or breast * Drainage or odor from incision. * Keep incision clean and dry at all times and follow doctor's instructions regarding bathing/showering - Follow up plan Follow up: PRANEETH OLIVARES MD [Primary Care Provider] - 04/17/18 (please schedule exam )
[2018-03-19] MEDS: PERCOCET 5/325 PO PRN (16:26)
[2018-03-20] MEDS: TYLENOL PO PRN ×5 (02:27→21:02)
[2018-03-20] MEDS: TAPAZOLE PO SCH (10:14)
[2018-03-20] MEDS: FEOSOL PO SCH ×2 (10:14→20:58)
[2018-03-20] MEDS: MOTRIN PO SCH ×3 (11:43→23:44)
[2018-03-20] MEDS ORDERED: CALCIUM GLUCONATE IV ONE (11:52)
[2018-03-20] MEDS ORDERED: APRESOLINE IV PRN (11:52)
[2018-03-20] MEDS ORDERED: MAGNESIUM SULFATE 4GM/100ML 4 GM/100 ML BAG IV ONE (11:52)
--- NOTE | 2018-03-20 11:52 | Event Note ---
Date: 03/20/18 Called by RN with notification of elevated blood pressures 150/90s and peristent headache. Discharge will be held. Pt will have PIH labs drawn and will be started on magnesium sulfate for seizure prophylaxis for 24 hrs.
[2018-03-20] MEDS ORDERED: CALCIUM CHLORIDE IV NR (13:00)
[2018-03-20 13:23] LABS: Hemoglobin 11.7 gm/dl (10.1-14.3); Mean Corpuscular HGB Conc 33 % (30-34); Mean Corpuscular Hemoglobin 25 pg (28-32); Mean Corpuscular Volume 76 fl (79-97); Platelet Count 254 K/mm3 (140-440); Red Blood Count 4.75 M/mm3 (3.65-5.03); Red Cell Distribution Width 16.8 % (13.2-15.2)
[2018-03-20] MEDS: MAGNESIUM SULFATE 40GM/1000ML 40 GM/1,000 ML BAG IV SCH (13:28)
[2018-03-20] MEDS: LACTATED RINGERS 1,000 ML IV SCH ×2 (13:31→23:41)
[2018-03-20 13:47] LABS: Alanine Aminotransferase 24 units/L (7-56); Uric Acid 4.7 mg/dL (3.5-7.6)
[2018-03-20 15:05] LABS: Bilirubin,Urine NEG (Negative); Blood,Urine MOD (Negative); Color,Urine Yellow (Yellow); Mucus,Urine FEW /HPF; Protein,Urine <15 mg/dL mg/dL (Negative); Urobilinogen,Urine < 2.0 mg/dL (<2.0); WBC,Urine < 1.0 /HPF (0.0-6.0)
--- NOTE | 2018-03-20 19:09 | Progress Note ---
Assessment and Plan A: PPD#2 s/p at term, Hyperthyroidism, Morbid Obesity now with Preeclampsia on Magnesium Sulfate for seizure prophylaxis P: Hold discharge. Mag Sulfate for seizure prophylaxis for 24 hours. Closely monitor clinical status. - Patient Problems (1) Term of male Current Visit: Yes Status: Acute (2) Morbid obesity Current Visit: Yes Status: Acute (3) Hyperthyroidism complicating Current Visit: No Status: Acute Qualifiers: Trimester: third trimester Qualified Code(s): O99.283 - Endocrine, nutritional and metabolic diseases complicating , third trimester; E05.90 - Thyrotoxicosis, unspecified without thyrotoxic crisis or storm Subjective - Subjective Date of service: 03/20/18 Principal diagnosis: s/p at term, Hyperthyroidism, Preeclampsia Interval history: Pt with headache and elevated blood pressures this morning and started on magnesium sulfate for seizure prophylaxis. She reports that her headache is much improved presently. She has no other complaints at this time. Patient reports: appetite normal, voiding normally, pain well controlled, ambulating normally, no nauseated : doing well Objective - Vital Signs Latest vital signs: Vital Signs Temp Pulse Resp BP Pulse Ox 03/20/18 19:05 89 20 131/81 03/20/18 16:41 18 03/20/18 16:00 98 F 89 18 136/84 03/20/18 13:20 97 H 18 123/81 97 03/20/18 13:15 91 H 18 129/77 98 03/20/18 13:10 91 H 18 134/80 97 03/20/18 13:05 95 H 18 140/77 97 03/20/18 13:00 92 H 18 130/84 100 03/20/18 11:43 20 03/20/18 11:42 20 03/20/18 11:10 98.2 F 77 20 152/92 03/20/18 08:20 98.3 F 80 137/81 03/20/18 06:32 98.5 F 88 130/80 03/20/18 06:26 20 03/20/18 03:27 18 03/20/18 02:27 20 03/20/18 00:00 98.2 F 80 18 137/81 03/19/18 21:22 18 Intake and Output 05/28/18 05/28/18 05/28/18 06:59 14:59 22:59 Intake Total 360 600 Output Total 2100 Balance 360 -1500 Intake: Oral 360 600 Output: Urine 2100 Indwelling Catheter 2100 Other: Total, Intake Amount 360 120 Total, Output Amount 900 # Voids Void 1 1 0 - Exam Breasts: Present: deferred Cardiovascular: Present: Regular rate Lungs: Present: Clear to auscultation Abdomen: Present: soft (obese) Uterus: Present: fundal height below umbilicus Extremities: Present: normal - Labs Labs: Abnormal lab results 03/20/18 03/20/18 Range/Units 13:00 13:00 MCV 76 L (79-97) fl MCH 25 L (28-32) pg RDW 16.8 H (13.2-15.2) % Creatinine 0.4 L (0.7-1.2) mg/dL Lactate Dehydrogenase 200 H (91-180) units/L
[2018-03-21] MEDS: MOTRIN PO SCH ×2 (05:55→17:55)
[2018-03-21] MEDS: MAGNESIUM SULFATE 40GM/1000ML 40 GM/1,000 ML BAG IV SCH (05:56)
--- NOTE | 2018-03-21 08:53 | Progress Note ---
Assessment and Plan - Patient Problems (1) Pre-eclampsia, Current Visit: Yes Status: Acute Plan to address problem: Patient is demonstrating clinical improvement Discontinue magnesium after 24 hours Subjective - Subjective Date of service: 03/21/18 Principal diagnosis: s/p at term, Hyperthyroidism, Preeclampsia Interval history: The patient is completing 24 hours of magnesium sulfate for seizure prophylaxis. She has had improvement in her blood pressures in the course. The patient is without any significant complaints. Patient reports: appetite normal, voiding normally, pain well controlled : doing well Objective - Vital Signs Latest vital signs: Vital Signs Temp Pulse Resp BP Pulse Ox 03/21/18 06:10 89 20 132/91 97 03/21/18 05:55 18 03/21/18 04:25 98.3 F 88 20 127/88 96 03/21/18 02:40 95 H 20 147/98 98 03/21/18 00:44 18 03/21/18 00:30 98.2 F 84 20 142/92 97 03/20/18 22:10 83 20 142/86 97 03/20/18 22:02 16 03/20/18 21:02 18 03/20/18 20:25 98.3 F 103 H 20 141/94 95 03/20/18 19:05 89 20 131/81 03/20/18 16:41 18 03/20/18 16:00 98 F 89 18 136/84 03/20/18 13:20 97 H 18 123/81 97 03/20/18 13:15 91 H 18 129/77 98 03/20/18 13:10 91 H 18 134/80 97 03/20/18 13:05 95 H 18 140/77 97 03/20/18 13:00 92 H 18 130/84 100 03/20/18 11:43 20 03/20/18 11:42 20 03/20/18 11:10 98.2 F 77 20 152/92 Intake and Output 03/20/18 03/21/18 03/21/18 22:59 06:59 14:59 Intake Total 1080 2185.833 Output Total 3100 1200 -2019 985.833 Intake: IV 1585.833 Lactated Ringers 1,000 ml 762.5 @ 125 mls/hr IV DIRECT LJ Rx#:[id number] MAGNESIUM SULFATE 40GM/ 823.333 1000ML 40 gm In 1,000 ml @ 2 GM/HR 50 mls/hr IV DIRECT LJ Rx#:[id number] Oral 1080 600 Output: Urine 3100 1200 Indwelling Catheter 3100 1200 Other: Total, Intake Amount 240 240 Total, Output Amount 1000 1200 # Voids Void 0 - Exam Uterus: Present: normal, firm - Labs Labs: Abnormal lab results 03/20/18 03/20/18 03/20/18 Range/Units 13:00 13:00 19:03 MCV 76 L (79-97) fl MCH 25 L (28-32) pg RDW 16.8 H (13.2-15.2) % Creatinine 0.4 L (0.7-1.2) mg/dL Magnesium 3.90 H (1.7-2.3) mg/dL Lactate Dehydrogenase 200 H (91-180) units/L 03/21/18 Range/Units 02:04 MCV (79-97) fl MCH (28-32) pg RDW (13.2-15.2) % Creatinine (0.7-1.2) mg/dL Magnesium 4.40 H (1.7-2.3) mg/dL Lactate Dehydrogenase (91-180) units/L
[2018-03-21] MEDS: FEOSOL PO SCH ×2 (10:27→22:30)
[2018-03-21] MEDS: PERCOCET 5/325 PO PRN ×2 (10:33→22:30)
[2018-03-21] MEDS: LACTATED RINGERS 1,000 ML IV SCH (12:11)
[2018-03-21] MEDS: TAPAZOLE PO SCH ×2 (12:11→13:00)
[2018-03-21] MEDS: NORMODYNE PO SCH (17:55)
[2018-03-21] MEDS: TYLENOL PO PRN (18:01)
[2018-03-22] MEDS: MOTRIN PO SCH ×3 (00:13→07:25)
[2018-03-22] MEDS: PERCOCET 5/325 PO PRN (07:25)
--- NOTE | 2018-03-22 09:11 | Progress Note ---
Assessment and Plan A/P PPD#3 s/p and s/p mag vss BP normlaized on labetolol methimazole 5mg qd per endocrine to continue discharge home Subjective - Subjective Date of service: 03/22/18 Principal diagnosis: s/p at term, Hyperthyroidism, Preeclampsia Patient reports: appetite normal, voiding normally, pain well controlled, flatus , ambulating normally : doing well, nursing well Objective - Vital Signs Latest vital signs: Vital Signs Temp Pulse Resp BP BP Pulse Ox 03/22/18 07:25 20 03/22/18 04:00 98.7 F 73 16 122/81 03/22/18 01:50 18 03/22/18 00:00 98.6 F 70 18 129/77 03/21/18 22:30 18 03/21/18 20:30 98.7 F 79 18 131/81 03/21/18 17:55 150/102 03/21/18 16:51 98.6 F 89 18 150/102 96 03/21/18 12:27 97.7 F 89 18 138/79 95 03/21/18 10:32 137/84 03/21/18 10:19 92 H 95 Intake and Output 03/21/18 03/22/18 03/22/18 23:59 07:59 15:59 Intake Total 300 Balance 300 Intake: Intake, Free Water 300 Other: # Voids Void 1 - Exam Breasts: Present: normal Cardiovascular: Present: Regular rate, Normal S1 Lungs: Present: Clear to auscultation, Normal air movement Abdomen: Present: normal appearance, soft, normal bowel sounds. Absent: distention, tenderness, guarding Vulva: both: normal Uterus: Present: normal, firm Extremities: Present: normal Incision: Present: normal, dry - Labs Labs: Abnormal lab results 03/21/18 Range/Units 15:07 Magnesium 3.60 H (1.7-2.3) mg/dL
--- NOTE | 2018-03-22 09:15 | Discharge Summary ---
Providers - Providers Date of Admission: 03/17/18 07:41 Date of discharge: 03/22/18 Attending physician: PRANEETH OLIVARES 03/18/18 03:15 Consult to [employer] [CONS] Routine Reason For Exam: assistance with , SNS Primary care physician: PRANEETH OLIVARES Hospitalization Reason for admission: induction of labor Condition at discharge: Stable Disposition: DC-01 TO HOME OR SELFCARE Plan - Discharge Medications Prescriptions: HYDROcodone/APAP 5-325 [[place] 5/325] 1 each PO Q6HR PRN #20 tablet PRN Reason: Pain Ibuprofen 800 mg PO Q8H PRN #30 tablet PRN Reason: Pain Labetalol [Normodyne TAB] 200 mg PO BID #60 tablet Methimazole [Tapazole] 5 mg PO QDAY #30 tablet - Provider Discharge Summary Additional instructions: [] Smoking cessation referral if applicable(refer to patient education folder for contact #) [] Refer to [facility] Booklet Call your doctor immediately for: * Fever > 100.5 * Heavy vaginal bleeding ( >1 pad per hour) * Severe persistent headache * Shortness of breath * Reddened, hot, painful area to leg or breast * Drainage or odor from incision. * Keep incision clean and dry at all times and follow doctor's instructions regarding bathing/showering - Follow up plan Follow up: PRANEETH OLIVARES MD [Primary Care Provider] - 04/17/18 (please schedule exam )
[2018-03-22] MEDS: BENADRYL PO PRN (09:35)
[2018-03-22] MEDS: FEOSOL PO SCH (10:40)
[2018-03-22] MEDS: NORMODYNE PO SCH (10:41)
[2018-03-22] MEDS: TAPAZOLE PO SCH (10:41)
[2018-03-22 12:17] VITALS: BP 112/71
== END 2018-03-22 14:20 | disposition home or self-care (01) | DRG 774 ==
LOC: LD 07:41 → OB 03-18 03:38
PROVIDERS: ADMIT Obstetrics & Gynecology; ATTEND Obstetrics & Gynecology
PROC: 10E0XZZ Delivery of Products of Conception, External Approach (ICD-10-PCS; principal; 2018-03-18)
PROC: 3E0P7VZ Introduction of Hormone into Female Reproductive, Via Natural or Artificial Opening (ICD-10-PCS; 2018-03-18)
DX: O48.0 Post-term pregnancy (principal); O13.4 Gestational [pregnancy-induced] hypertension without significant proteinuria, complicating childbirth; O99.52 Diseases of the respiratory system complicating childbirth; O99.284 Endocrine, nutritional and metabolic diseases complicating childbirth; E03.9 Hypothyroidism, unspecified; O76 Abnormality in fetal heart rate and rhythm complicating labor and delivery; O77.0 Labor and delivery complicated by meconium in amniotic fluid; O69.81X0 Labor and delivery complicated by cord around neck, without compression, not applicable or unspecified; O99.214 Obesity complicating childbirth; E05.90 Thyrotoxicosis, unspecified without thyrotoxic crisis or storm; O14.94 Unspecified pre-eclampsia, complicating childbirth; E66.01 Morbid (severe) obesity due to excess calories; J45.909 Unspecified asthma, uncomplicated; Z68.41 Body mass index [BMI] 40.0-44.9, adult; Z3A.41 41 weeks gestation of pregnancy; Z37.0 Single live birth; Z83.3 Family history of diabetes mellitus; Z82.49 Family history of ischemic heart disease and other diseases of the circulatory system; Z64.1 Problems related to multiparity; O99.02 Anemia complicating childbirth; D64.9 Anemia, unspecified; D56.3 Thalassemia minor; O71.89 Other specified obstetric trauma
CPT/HCPCS: 36415; 81001; 82565; 83615; 83735; 84450; 84460; 84550; 85014; 85018; 85027; 86592; 86850; 86900; 86901; 99211; G0463; J1200; J2590; J3010; J3475; J7120

== ENCOUNTER 2022-01-21 11:54 | Outpatient (CLI) | payer MEDICAID ==
[2022-01-21 13:04] VITALS: BP 117/66
--- NOTE | 2022-01-21 15:42 | Ultrasound Report ---
ULTRASOUND BIOPHYSICAL PROFILE INDICATION: wellbeing. COMPARISON: None available. FINDINGS: heart rate is 149 beats per minute. breathing movement = 2 Gross body movement = 2 tone = 2 Qualitative amniotic fluid volume = 2 IMPRESSION: biophysical profile = 05/31 Signer Name: Jordan Deras Jr, MD Signed: 01/21/2022 3:37 PM Workstation Name: [id number]
== END 2022-01-21 15:40 | disposition home or self-care (01) ==
LOC: TRG 11:54 → APU 11:56 → TRG 15:40
PROVIDERS: ATTEND Obstetrics & Gynecology
DX: O16.3 Unspecified maternal hypertension, third trimester (principal); Z3A.31 31 weeks gestation of pregnancy
CPT/HCPCS: 59025; 76819; 82962

== ENCOUNTER 2022-02-14 11:16 | Emergency (ER) | payer MEDICAID ==
[2022-02-14] MEDS ORDERED: ALBUTEROL 2.5 MG/3 ML NEBU IH ONE (12:10)
[2022-02-14] MEDS ORDERED: IPRATROPIUM 0.02% NEBU 2.5 ML IH ONE (12:10)
[2022-02-14] MEDS ORDERED: methylPREDNISolone Sod Succinate 125 MG/2 ML INJ IV ONE (12:11)
--- NOTE | 2022-02-14 12:32 | Emergency Department Report ---
ED Asthma HPI - General Chief Complaint: Adult Asthma Stated Complaint: ASTHMA ATTACK/35 WKS PREG Time Seen by Provider: 02/14/22 12:09 Source: patient Mode of arrival: Ambulatory Limitations: No Limitations - History of Present Illness Initial Comments: 31-year-old female with a past medical history of asthma, hypertension, and hypothyroidism presents to the hospital currently 35 weeks gestation with wheezing and shortness of breath x1 week. This is patient's eighth . She also states she is currently on insulin for diabetes. patient reports a cough productive of yellow sputum. Patient had a temp of 101 next night. Patient complains of chest wall pain rated 6/10 in intensity with coughing and expresses concerns of having pneumonia. She denies history of previous intubations. Patient states she is visiting for COVID. She reports a negative home COVID test [facility]ALEM[facility] doctor: Dr. Krueger with [place] [facility] - Related Data Home Medications Medication Instructions Recorded Confirmed Last Taken RX: ALBUTEROL NEB's [Proventil 2 inhalation INNOSTRIL PRN PRN 09/05/14 03/17/18 09/04/14 09:00 0.083% NEBS] RX: Ferrous Sulfate [Feosol 325 MG 1 tab PO BID 03/17/18 03/17/18 03/16/18 21:00 tab] RX: methIMAzole [Tapazole] 1 tab PO DAILY 03/17/18 03/17/18 03/10/18 09:00 1 Previous Rx's Medication Instructions Recorded Last Taken Type Vit Calc,Iron,Folic 1 each PO QDAY #30 tablet 10/29/16 03/17/18 07:00 Rx [ Vitamins] 1 HYDROcodone/APAP 5-325 [[place] 1 each PO Q6HR PRN #20 tablet 03/19/18 Unknown Rx 5/325] RX: Ibuprofen [Ibuprofen 800] 800 mg PO Q8H PRN #30 tablet 03/19/18 Unknown Rx RX: labetaloL [Labetalol 200mg TAB] 200 mg PO BID #60 tablet 03/22/18 Unknown Rx RX: methIMAzole [Tapazole] 5 mg PO QDAY #30 tablet 03/22/18 Unknown Rx Albuterol Sulfate [Proair 90 mcg IH Q4HR PRN #1 inh 02/14/22 Unknown Rx Respiclick] Cetirizine HCl [Zyrtec 10mg tab] 10 mg PO DAILY PRN #20 tab 02/14/22 Unknown Rx RX: ALBUTEROL NEB's [Proventil 2.5 mg IH TID PRN #30 neb 02/14/22 Unknown Rx 0.083% NEBS] RX: guaiFENesin DM [Guaifenesin Dm 20 ml PO Q6HR PRN #20 dose 02/14/22 Unknown Rx Syrup] RX: predniSONE [Deltasone] 40 mg PO QDAY 5 Days tab 02/14/22 Unknown Rx Sodium Chloride [Saline Nasal 1 - 2 sprays NS PRN PRN #1 bottle 02/14/22 Unknown Rx Olds] Allergies Allergy/AdvReac Type Severity Reaction Status Date / Time No Known Allergies Allergy Verified 02/14/22 13:56 ED Review of Systems ROS: Stated complaint: ASTHMA ATTACK/35 WKS PREG Other details as noted in HPI Comment: All other systems reviewed and negative ED Past Medical Hx - Past Medical History Previous Medical History?: Yes Hx Hypertension: Yes Hx Congestive Heart Failure: No Hx Diabetes: No Hx Deep Vein Thrombosis: No Hx Renal Disease: No Hx Sickle Cell Disease: No Hx Seizures: No Hx Asthma: Yes (takes albuterol prn) Hx COPD: No Hx HIV: No Additional medical history: THYROID , Vaginal delivery x 7 - Surgical History Past Surgical History?: No - Social History Smoking Status: Never Smoker - Medications Home Medications: Home Medications Medication Instructions Recorded Confirmed Last Taken Type RX: ALBUTEROL NEB's [Proventil 2 inhalation INNOSTRIL PRN PRN 09/05/14 03/17/18 09/04/14 09:00 History 0.083% NEBS] Vit Calc,Iron,Folic 1 each PO QDAY #30 tablet 10/29/16 03/17/18 03/17/18 07:00 Rx [ Vitamins] 1 RX: Ferrous Sulfate [Feosol 325 MG 1 tab PO BID 03/17/18 03/17/18 03/16/18 21:00 History tab] RX: methIMAzole [Tapazole] 1 tab PO DAILY 03/17/18 03/17/18 03/10/18 09:00 History 1 HYDROcodone/APAP 5-325 [[place] 1 each PO Q6HR PRN #20 tablet 03/19/18 Unknown Rx 5/325] RX: Ibuprofen [Ibuprofen 800] 800 mg PO Q8H PRN #30 tablet 03/19/18 Unknown Rx RX: labetaloL [Labetalol 200mg TAB] 200 mg PO BID #60 tablet 03/22/18 Unknown Rx RX: methIMAzole [Tapazole] 5 mg PO QDAY #30 tablet 03/22/18 Unknown Rx Albuterol Sulfate [Proair 90 mcg IH Q4HR PRN #1 inh 02/14/22 Unknown Rx Respiclick] Cetirizine HCl [Zyrtec 10mg tab] 10 mg PO DAILY PRN #20 tab 02/14/22 Unknown Rx RX: ALBUTEROL NEB's [Proventil 2.5 mg IH TID PRN #30 neb 02/14/22 Unknown Rx 0.083% NEBS] RX: guaiFENesin DM [Guaifenesin Dm 20 ml PO Q6HR PRN #20 dose 02/14/22 Unknown Rx Syrup] RX: predniSONE [Deltasone] 40 mg PO QDAY 5 Days tab 02/14/22 Unknown Rx Sodium Chloride [Saline Nasal 1 - 2 sprays NS PRN PRN #1 bottle 02/14/22 Unknown Rx Olds] ED Physical Exam - General Limitations: No Limitations - Other Other exam information: General: No acute distress Head: Atraumatic Eyes: normal appearance ENT: Moist mucous membranes, nasal congestion Neck: Normal appearance, no midline tenderness Chest: Bilateral wheezing, coughing, no respiratory distress or accessory muscle use CV: Tachycardia regular rhythm Abdomen: Soft, normal bowel sounds, gravid abdomen nontender Back: Normal inspection Extremity: Normal inspection, full range of motion Neuro: Alert O x 3, no facial asymmetry, speech clear, no gross motor sensory deficit Psych: Appropriate behavior Skin: No rash ED Course Vital Signs 02/14/22 02/14/22 02/14/22 11:29 13:49 13:53 Temperature 97.9 F Pulse Rate 122 H 120 H Pulse Rate [ 107 H Anterior Upper Lobe] Pulse Rate [ 112 H Posterior Bilateral Throughout] Respiratory 24 20 Rate Respiratory 18 Rate [Anterior Upper Lobe] Respiratory 18 Rate [Posterior Bilateral Throughout] Blood Pressure 158/84 118/60 [Right] O2 Sat by Pulse 97 97 Oximetry 02/14/22 02/14/22 13:54 14:44 Temperature Pulse Rate 118 H Pulse Rate [ Anterior Upper Lobe] Pulse Rate [ Posterior Bilateral Throughout] Respiratory 20 Rate Respiratory Rate [Anterior Upper Lobe] Respiratory Rate [Posterior Bilateral Throughout] Blood Pressure 110/61 [Right] O2 Sat by Pulse 96 97 Oximetry ED Medical Decision Making - Radiology Data Radiology results: report reviewed XR chest 1V ap INDICATION / CLINICAL INFORMATION: wheezing, sob, cough, fever. COMPARISON: None available. FINDINGS: SUPPORT DEVICES: None. HEART /PULMONARY VASCULATURE: No significant abnormality. LUNGS / PLEURA: No significant pulmonary or pleural abnormality. No pneumothorax. IMPRESSION: 1. No acute findings. - Medical Decision Making 31-year-old female presents to the hospital with exacerbation, cough, reports of fever at home. Patient is afebrile here. Chest x-ray without pneumonia. Symptoms improved with ED treatment of Solu-Medrol, bronchodilators and cough medicine. Patient reports feeling much better and requesting a refill in her bronchodilators Patient cautioned that prednisone may cause a temporary increase in her glucose levels and she may need medication adjustment. She will continue to monitor closely Critical Care Time: No Critical care attestation.: If time is entered above; I have spent that time in minutes in the direct care of this critically ill patient, excluding procedure time. ED Disposition Clinical Impression: Acute asthma exacerbation, Allergic rhinitis, Disposition: HOME / SELF CARE / HOMELESS Is pt being admited?: No Does the pt Need Aspirin: No Condition: Stable Instructions: Asthma, Adult, Allergic Rhinitis, Adult Additional Instructions: Take the medication as prescribed. Follow-up with your doctor or doctor/clinic provided. Return if symptoms worsen as indicated by your discharge instructions. Continue to monitor your blood glucose. Prednisone may cause a temporary increase in your sugar levels and you may need adjustment in your insulin doses Prescriptions: RX: predniSONE [Deltasone] 40 mg PO QDAY 5 Days tab RX: guaiFENesin DM [Guaifenesin Dm Syrup] 20 ml PO Q6HR PRN #20 dose PRN Reason: Cough Albuterol Sulfate [Proair Respiclick] 90 mcg IH Q4HR PRN #1 inh PRN Reason: Wheezing RX: ALBUTEROL NEB's [Proventil 0.083% NEBS] 2.5 mg IH TID PRN #30 neb PRN Reason: Wheezing Sodium Chloride [Saline Nasal Olds] 1 - 2 sprays NS PRN PRN #1 bottle PRN Reason: Nasal Congestion Cetirizine HCl [Zyrtec 10mg tab] 10 mg PO DAILY PRN #20 tab PRN Reason: Allergy Symptoms
--- NOTE | 2022-02-14 12:52 | XRay Report ---
XR chest 1V ap INDICATION / CLINICAL INFORMATION: wheezing, sob, cough, fever. COMPARISON: None available. FINDINGS: SUPPORT DEVICES: None. HEART /PULMONARY VASCULATURE: No significant abnormality. LUNGS / PLEURA: No significant pulmonary or pleural abnormality. No pneumothorax. IMPRESSION: 1. No acute findings. Signer Name: Bradley Chavira MD Signed: 02/14/2022 12:47 PM Workstation Name: [id number]
[2022-02-14] MEDS ORDERED: guaiFENesin DM 200/20 MG ORAL LIQD 10 ML PO ONE (13:55)
[2022-02-14 16:14] VITALS: BP 110/64
== END 2022-02-14 16:15 | disposition home or self-care (01) ==
LOC: ED 11:16
DX: O99.513 Diseases of the respiratory system complicating pregnancy, third trimester (principal); J45.909 Unspecified asthma, uncomplicated; I10 Essential (primary) hypertension; Z79.899 Other long term (current) drug therapy; Z3A.35 35 weeks gestation of pregnancy
CPT/HCPCS: 71045; 94644; 96374; 99283; J2930